=== PATIENT | male | born 1995 | race Caucasian/White ===

== ENCOUNTER 2016-09-25 11:57 | Emergency (ER) | payer OTHER ==
[~2016-09-25] VITALS: Ht 185.4 cm; Wt 79.7 kg
[2016-09-25 12:46] LABS: MCH 29.4 PG (29.0-34.0); MCHC 33.9 G/DL (30.0-36.0); MCV 86.9 FL (86-99); MEAN PLAT.VOLUME 11.2 uM^3 (9.0-12.4); PLATELET COUNT 122 K/uL (156-360); RBC DIS.WIDTH-CV 12.9 % (11.8-14.6); RBC DIS.WIDTH-SD 41.1 % (39-53); RED BLOOD COUNT 5.64 M/uL (4.00-5.50); WHITE BLOOD COUNT 12.5 K/uL (4.1-10.2)
[2016-09-25 12:56] LABS: CHLORIDE 103 mEq/L (99-109); POTASSIUM 3.7 mEq/L (3.7-5.4); SODIUM 138 mEq/L (136-147)
[2016-09-25 12:59] LABS: GLUCOSE 91 mg/dL (70-99)
[2016-09-25 13:00] LABS: ANION GAP 12 MEQ/L (2-14)
[2016-09-25 13:01] LABS: TOTAL BILIRUBIN 4.1 mg/dL (0.0-1.0)
[2016-09-25 13:02] LABS: ALKALINE PHOSPHATASE 214 IU/L (3-129); GFR ESTIMATE (CALCULATED) > 59 mL/min/
[2016-09-25 13:03] LABS: UREA NITROGEN (BUN) 7 mg/dL (9-23)
[2016-09-25 13:23] LABS: INTERNAL CONTROL VALID? YES; MONOSPOT (MONONUCLEOSIS SEROL) POSITIVE
[2016-09-25] MEDS ORDERED: PREDNISONE50 MG PO (14:00)
[2016-09-25] MEDS ORDERED: HYCODAN SYRUP480 ML PO (14:00)
[2016-09-25 15:35] VITALS: BP 135/73
== END 2016-09-25 15:54 | disposition home or self-care (01) ==
LOC: EME 11:57
DX: B27.90 Infectious mononucleosis, unspecified without complication (principal); R05 Cough; R11.2 Nausea with vomiting, unspecified; R10.9 Unspecified abdominal pain; R82.99 Other abnormal findings in urine; R17 Unspecified jaundice
CPT/HCPCS: 80053; 81003; 85027; 86308; 99281; 99284; J7030